=== PATIENT | female | born 1950 | race Caucasian/White ===

== ENCOUNTER 2017-11-29 10:35 | Day surgery (SDC) | payer OTHER ==
[2017-11-26 13:28] LABS: Absolute Lymphocytes (CBC) 2.3 K/uL (0.7-4.9); Absolute Monocytes 0.7 K/uL (0.1-1.3); Absolute Neutrophil 4.3 K/uL (1.8-8.0); Basophils % 0.5 % (0-1.3); Eosinophils % 2.7 % (0-4.4); Hematocrit 48.6 % (36.0-45.0); Lymphocytes % 30.1 % (15.3-44.8); MCH 31.5 pg (27.0-35.0); MCV 93.2 fL (80-100); MPV 8.4 fL (7.6-11.3); Monocytes % 8.7 % (3.3-12.3); RBC Red Blood Cell Count 5.21 M/uL (3.86-4.86)
[2017-11-26 13:35] LABS: Potassium 4.3 mEq/L (3.6-5.0)
--- NOTE | 2017-11-26 14:19 | RAD REPORT ---
EXAM DESCRIPTION: Samanta Villanueva (2 Views)11/26/2017 2:05 pm CLINICAL HISTORY: Preop, infection, fever COMPARISON: None FINDINGS: The lungs appear clear of acute infiltrate. The heart is normal size IMPRESSION: No acute abnormalities displayed
--- NOTE | 2017-11-26 15:49 | EKG ---
Test Date: 2017-11-26 Test Time: 13:22:12 Dam Worker: CHIP MEASUREMENT RESULTS: Intervals: Rate: 53 SD: 180 QRSD: 78 QT: 446 QTc: 418 [place]: P: 64 SD: 180 QRS: 68 T: 71 INTERPRETIVE STATEMENTS: Sinus bradycardia Possible Inferior infarct, age undetermined Abnormal ECG No previous ECG available for comparison Electronically Signed On 11-26-17 15:49:08 CDT by Héctor Hoskins
[2017-11-29] MEDS ORDERED: NA CHLORIDE 0.9% 1,000 ML ONE (10:52)
[2017-11-29] MEDS ORDERED: KETOROLAC 30 MG/ML INJ ONE (10:59)
[2017-11-29] MEDS ORDERED: FENTANYL CITR 100 MCG/2 ML ONE (10:59)
[2017-11-29] MEDS ORDERED: MIDAZOLAM HCL 2 MG/2 ML INJ ONE (10:59)
[2017-11-29] MEDS ORDERED: LIDOCAINE 2% MPF 5 ML VIAL ONE (10:59)
[2017-11-29] MEDS ORDERED: PROPOFOL 200 MG/20 ML VIAL IV ONE (10:59)
[2017-11-29] MEDS: CEFAZOLIN/SWI 1gm 1 GM/10 ML SYR ONE ×2 (11:30→11:35)
--- NOTE | 2017-11-29 12:19 | P.BOP ---
Preoperative diagnosis: right second finger abscess, cellulitis, diabetes, s/p manicure Postoperative diagnosis: same Primary procedure: Incision and drainage of right second finger abscess Estimated blood loss: <5cc Specimen: pus Findings: right second finger abscess Complications: None Drain(s): Other Transferred to: Recovery Room Condition: Good
[2017-11-29] MEDS ORDERED: HYDROCODONE/APAP 5/325 MG TAB ONE (12:53)
--- NOTE | 2017-11-30 01:06 | OP ---
Date of Procedure: 11/29/2017 Surgeon: Blas Gaston MD Preoperative Diagnoses: Right second finger abscess, cellulitis, diabetes, status post manicure. Postoperative Diagnoses: Right second finger abscess, cellulitis, diabetes, status post manicure. Procedures: Incision and drainage of right second finger abscess, complex. Estimated Blood Loss: Less than 5 cc. Specimen: Pus. Findings: Right second finger abscess come from the lateral and medial side and also we have to go a nd partially remove the nail to go into an area where the patient also have a fluid collection. Bone does not seem to be exposed, although deep subcutaneous tissue is exposed, the area was left open. Indication For Procedure: This is the case of a 67-year-old patient, who comes to us with a finger a bscess. The patient had a manicure after that developed redness. She had a second antibiotic and is still not improving so. The patient understand the need for debridement and incision and drainage o f an abscess. She is very tender. She does not want to do this unless she is under anesthesia, so w e brought the patient to the operating room. Benefits, alternatives, and risks fully explained to th e patient, which include but are not limited to infection, bleeding, damage to adjacent structures, a nesthesia complication, recurrence, MO, and even . She also understands this may not relieve an y symptoms. She might need more than one surgical intervention. She understood. Signed a consent. Procedure In Detail: The patient was brought to the operating room, placed in the supine position. Anesthesia was done without complication. A time-out was called. Right hand was prepped and draped in usual sterile fashion. A nerve block was done at the base of the finger as requested by the anest hesiologist. I did the nerve block with lidocaine 1% plain. Then, after that, proceeded with I and D of the area. We made an incision on the lateral side of the finger and medial side. We noticed th at abscess went underneath the nail, partially at the distal part. We opened and exposed that absces s and remove the necrotic tissue present, irrigated the area, cultured the pus. Bone does not seem t o be involved. After previous irrigation and hemostasis, we proceeded to cover the area with sterile dressings and sent the patient to recovery room in stable condition. FREDDY/PING Voice ID: [id number] Report ID: [id number]
--- NOTE | 2017-11-30 01:22 | DS ---
Date of Discharge: 11/29/2017 Diagnoses: Right second finger abscess, cellulitis, diabetes. Procedure: Incision and drainage of right second finger abscess. Disposition: Home. Activity: As tolerated. No heavy lifting. Followup: Follow up in my office in 1 week. Call for appointment [phone]. Discharge Instructions: Bactroban to the area daily or at least twice a day. Keep area clean. May use Hibiclens soap and water, but has to be running water, not standing water. The patient also unde rstand to continue the 2 antibiotics she is on right now, one of them is Cipro. She requests Vicodin for pain medication not the usual Tylenol No. 3 or Motrin. She states she has low tolerance for sheri n and she do not think it is worse for her as Vicodin. This was a very tender procedure, so we just gave her the Vicodin. Advised her if she needs more in the future, we may have to contact the pain m anagement doctor. FREDDY/PING Voice ID: [id number] Report ID: [id number]
== END 2017-11-29 13:45 | disposition home or self-care (01) ==
LOC: OR 10:35
PROVIDERS: ATTEND Surgery
PROC: 0J9J0ZZ Drainage of Right Hand Subcutaneous Tissue and Fascia, Open Approach (ICD-10-PCS; principal; 2017-11-29 12:30)
DX: L02.511 Cutaneous abscess of right hand (principal); E11.9 Type 2 diabetes mellitus without complications; I10 Essential (primary) hypertension; I25.10 Atherosclerotic heart disease of native coronary artery without angina pectoris; Z80.9 Family history of malignant neoplasm, unspecified
CPT/HCPCS: 26011; 36415; 71046; 80048; 82962 ×2; 85025; 87070; 87075; 87077; 87186; 87205; 93005; J0690; J2250; J3010; J7030